=== PATIENT | female | born 1930 | race Caucasian/White ===

== ENCOUNTER 2017-04-05 15:49 | Emergency (ER) | payer MEDICARE, BC ==
--- NOTE | 2017-04-05 16:17 | ERPHSYRPT ---
- History of Present Illness Time Seen by Provider: 04/05/17 16:10 Source: patient, family Exam Limitations: no limitations Patient Subjective Stated Complaint: pt here with family for cough, congestion, no fever, nausea and vomited x1 2 days ago , weaker than normal Triage Nursing Assessment: pt alert, resp easy, chest with rhonci, non productive cough, no edema noted, weak Physician History: The patient is an 86-year-old female with her family complaining of a cough for 2-3 days. She has a assistant professor of chemistry come in to help her daily at home. The under water assistant noted crackles in her lungs this morning and wanted her evaluated. She also thought her O2 saturation was slightly low. The patient had hiatal hernia surgery 2 years ago and at that time developed aspiration pneumonia. There is some concern for pneumonia today. The patient is slightly weak today. She also vomited one time 2 days ago. Her past medical history is significant for aspiration pneumonia, congestive heart failure, pacemaker/ defibrillator placement. Timing/Duration: day(s) (3) Cough Quality/Degree: moderate Possible Cause: occasional episodes Modifying Factors: Improves With: coughing Associated Symptoms: cough, shortness of breath Allergies/Adverse Reactions: sotalol [From Betapace] Allergy (Verified 04/05/17 16:06) Home Medications: Amiodarone HCl 200 mg DAILY 04/05/17 [History] Atorvastatin Calcium 20 mg DAILY 04/05/17 [History] Cyanocobalamin (Vitamin B-12) [B-12] 1,000 mcg DAILY 04/05/17 [History] Dabigatran Etexilate Mesylate [Pradaxa] 150 mg DAILY 04/05/17 [History] Fluoxetine HCl 20 mg DAILY 04/05/17 [History] Furosemide 20 mg [Lasix 20 mg] 20 mg DAILY 04/05/17 [History] Glipizide 5 mg [Glucotrol 5 MG] 5 mg .ROUTE BID 04/05/17 [History] Levothyroxine Sodium [Synthroid] 125 mcg DAILY 04/05/17 [History] Losartan Potassium 100 mg DAILY 04/05/17 [History] Omeprazole 40 mg DAILY 04/05/17 [History] Potassium Chloride [Klor-Con] 20 meq BID 04/05/17 [History] Hx Influenza Vaccination/Date Given: Yes Hx Pneumococcal Vaccination/Date Given: Yes - Review of Systems Constitutional: No Fever, No Chills Eyes: No Symptoms Ears, Nose, & Throat: No Symptoms Respiratory: Cough Cardiac: No Chest Pain, No Edema, No Syncope Abdominal/Gastrointestinal: Vomiting Genitourinary Symptoms: No Dysuria Musculoskeletal: No Back Pain, No Neck Pain Skin: No Rash Neurological: No Dizziness, No Focal Weakness, No Sensory Changes Psychological: No Symptoms Endocrine: No Symptoms Hematologic/Lymphatic: No Symptoms Immunological/Allergic: No Symptoms All Other Systems: Reviewed and Negative - Past Medical History Pertinent Past Medical History: Yes Neurological History: Stroke Cardiac History: Congenital Heart Disease, Congestive Heart Failure Endocrine Medical History: Diabetes Type II, Hypothyroidism Musculoskeletal History: Arthritis GI Medical History: GERD Other Medical History: weakness on left - Past Surgical History Past Surgical History: Yes Cardiac: CABG Gastrointestinal: Cholecystectomy Musculoskeletal: Orthopedic Surgery Other Surgical History: abd surg for stomach - Social History Smoking Status: Never smoker Exposure to second hand smoke: No Drug Use: none Patient Lives Alone: Yes - Female History Hx Last Menstrual Period: post - Nursing Vital Signs Nursing Vital Signs: Initial Vital Signs Temperature 98.5 F Temperature Source Oral Pulse Rate 61 Respiratory Rate 18 Blood Pressure [] 98/40 Pain Intensity 0 - Physical Exam General Appearance: no apparent distress, alert Eye Exam: PERRL/EOMI, eyes nml inspection Ears, Nose, Throat Exam: normal ENT inspection, TMs normal, pharynx normal, moist mucous membranes Neck Exam: normal inspection, non-tender, supple, full range of motion Respiratory Exam: crackles/rales Cardiovascular Exam: regular rate/rhythm, normal heart sounds Gastrointestinal/Abdomen Exam: soft, No tenderness Pelvic Exam: not done Rectal Exam: not done Back Exam: normal inspection, No CVA tenderness, No vertebral tenderness Extremity Exam: normal inspection, normal range of motion, No pedal edema Neurologic Exam: alert, oriented x 3, cooperative, normal mood/affect, sensation nml, No motor deficits Skin Exam: normal color, warm, dry, No rash Lymphatic Exam: No adenopathy SpO2 Interpretation: normal SpO2: 93 - Radiology Exams Chest X-ray Interpretation: Teleradiologist Report, Other (right lung interstitial opacities per Dr Tineo.) Ordered Tests: Active Orders 24 hr Category Date Time Status IV Insertion STAT Care 04/05/17 17:39 Active CHEST 2 VIEWS (PA AND LAT) Stat Exams 04/05/17 16:40 Completed CBC W DIFF Stat Lab 04/05/17 16:50 Completed CMP Stat Lab 04/05/17 16:50 Completed NT PRO BNP Stat Lab 04/05/17 16:50 Completed TROPONIN Stat Lab 04/05/17 16:50 Completed Medication Summary Generic Name Dose Route Start Last Admin Trade Name Freq PRN Reason Stop Dose Admin Ceftriaxone Sodium/Dextrose 1 g in 50 mls @ 100 mls/hr 04/05/17 17:39 17:47 Rocephin 1 Gm-D5w 50 Ml Bag IV 04/05/17 18:08 100 mls/hr STAT ONE Administration Discontinued Medications Generic Name Dose Route Start Last Admin Trade Name Freq PRN Reason Stop Dose Admin Furosemide 20 mg 04/05/17 17:39 04/05/17 17:47 Lasix 40 Mg/4 Ml IV 04/05/17 17:40 20 mg STAT ONE Administration Furosemide Confirm 04/05/17 17:44 Lasix 40 Mg/4 Ml Administered 04/05/17 17:45 Dose 40 mg .ROUTE .STK-MED ONE Ceftriaxone Sodium/Dextrose Confirm 04/05/17 17:44 Rocephin 1 Gm-D5w 50 Ml Bag Administered 04/05/17 17:45 Dose 1 g in 50 mls @ ud IV .STK-MED ONE Lab/Rad Data: Laboratory Result Diagrams 04/05/17 16:50 04/05/17 16:50 Laboratory Results 04/05/17 04/05/17 Range/Units 16:50 16:50 WBC 9.2 (4.0-10.5) K/mm3 RBC 3.78 L (4.1-5.4) M/mm3 Hgb 11.8 L (12.0-16.0) gm/dl Hct 36.0 (35-47) % MCV 95.2 (78-100) fl MCH 31.2 (26-32) pg MCHC 32.8 (32-36) g/dl RDW 14.1 H (11.5-14.0) % Plt Count 173 (150-450) K/mm3 MPV 9.5 (6-9.5) fl Gran % 80.7 H (36.0-66.0) % Lymphocytes % 10.3 L (24.0-44.0) % Monocytes % 8.7 (0.0-12.0) % Eosinophils % 0.2 (0.00-5.0) % Basophils % 0.1 (0.0-0.4) % Basophils # 0.01 (0-0.4) Sodium 136 (136-145) mEq/L Potassium 3.9 (3.5-5.1) mEq/L Chloride 101 (98-107) mEq/L Carbon Dioxide 31.5 (21-32) mEq/L Anion Gap 7.2 (5-15) MEQ/L BUN 14 (9-20) mg/dL Creatinine 1.24 (0.55-1.30) mg/dl Estimated GFR 44 ML/MIN Glucose 89 (70-110) MG/DL Calcium 8.8 (8.5-10.1) mg/dL Total Bilirubin 0.7 (0.2-1.0) mg/dL AST 27 (15-37) U/L ALT 17 (12-78) U/L Alkaline Phosphatase 58 (46-116) U/L Troponin I 0.051 (0.000-0.056) ng/ml NT-Pro-B Natriuret Pep 95751 H (0-450) pg/ml Serum Total Protein 6.5 (6.4-8.2) gm/dL Albumin 2.8 L (3.4-5.0) g/dL - Progress Progress: unchanged Air Movement: good Blood Culture(s) Obtained: No Antibiotics given: Yes Counseled pt/family regarding: lab results, diagnosis, rad results - Departure Time of Disposition: 17:55 Departure Disposition: Home Clinical Impression: CHF (congestive heart failure) Condition: Stable Critical Care Time: No Referrals: MELONY MCFARLANE [Primary Care Provider] - Instructions: Heart Failure Additional Instructions: You have congestive heart failure and your chest x-ray shows interstitial opacities on the right side. You were given Rocephin 1 g and Lasix 20 mg by IV in the ER. Take the azithromycin pack as directed for the next 5 days. Follow- up as needed. Prescriptions: Azithromycin 250 mg [Zithromax 250 MG TABLET] 250 mg PO ZPACK #6 tablet
[2017-04-05 16:54] LABS: BASOPHIL % 0.1 % (0.0-0.4); Eosinophil % 0.2 % (0.00-5.0); Granulocytes % 80.7 % (36.0-66.0); Lymphocytes % 10.3 % (24.0-44.0); Mean Cell Volume 95.2 fl (78-100); Mean Corpuscular Hemoglobin 31.2 pg (26-32); Mean Platelet Volume 9.5 fl (6-9.5); Monocytes % 8.7 % (0.0-12.0); Platelet Count 173 K/mm3 (150-450); Red Blood Count 3.78 M/mm3 (4.1-5.4); Red Cell Distribution Width 14.1 % (11.5-14.0); White Blood Count 9.2 K/mm3 (4.0-10.5)
--- NOTE | 2017-04-05 17:14 | XRAY ---
Indication: Cough and congestion. Comparison: None PA/lateral chest demonstrates diffuse right lung interstitial opacities. No consolidation or large effusion. Heart is borderline enlarged and demonstrates previous CABG surgery along with left-sided AICD. Bony thorax intact with osteopenia and degenerative changes. Impression: Right lung interstitial opacities. Rule out pneumonitis.
[2017-04-05 17:21] LABS: ALBUMIN 2.8 g/dL (3.4-5.0); ANION GAP 7.2 MEQ/L (5-15); BILIRUBIN,TOTAL 0.7 mg/dL (0.2-1.0); Carbon Dioxide 31.5 mEq/L (21-32); Potassium 3.9 mEq/L (3.5-5.1); TROPONIN 0.051 ng/ml (0.000-0.056); Total Protein 6.5 gm/dL (6.4-8.2)
[2017-04-05] MEDS ORDERED: Lasix 40 MG/4 ML IV ONE (17:39)
[2017-04-05] MEDS ORDERED: ROCEPHIN 1 Gm-D5w 50 ml Bag** 1 G/50 ML IVPB IV ONE ×2 (17:39→17:44)
[2017-04-05] MEDS ORDERED: Lasix 40 MG/4 ML ONE (17:44)
[2017-04-05 18:28] VITALS: BP 124/47; PULSE 74; O2SAT 97
== END 2017-04-05 18:27 | disposition home or self-care (01) ==
LOC: ED 15:49
DX: I50.9 Heart failure, unspecified (principal); R05 Cough; R09.89 Other specified symptoms and signs involving the circulatory and respiratory systems; R06.02 Shortness of breath; Z79.899 Other long term (current) drug therapy
CPT/HCPCS: 36000; 36415; 71020; 80053; 83880; 84484; 85025; 96365; 96374; 99284; J0696; J1940